=== PATIENT | female | born 1990 | race African-American/Black ===

== ENCOUNTER 2019-03-17 02:16 | Observation (INO) | payer OTHER ==
[~2019-03-17] VITALS: Ht 167.6 cm; Wt 77.1 kg
[2019-03-17] MEDS ORDERED: LACTATED RINGERS 1,000 ML IV SCH (03:15)
[2019-03-17] MEDS ORDERED: ONDANSETRON HCL 4MG/2ML INJ IV NR (03:15)
[2019-03-17 03:47] LABS: CHLORIDE 108 mEq/L (98-107)
[2019-03-17] MEDS ORDERED: PREN1TAB23 PO (04:06)
== END 2019-03-17 04:30 | disposition home or self-care (01) ==
LOC: 8 EST LDRP 02:16
PROVIDERS: ADMIT Obstetrics & Gynecology; ATTEND Obstetrics & Gynecology
DX: O21.2 Late vomiting of pregnancy (principal); O26.893 Other specified pregnancy related conditions, third trimester; R19.7 Diarrhea, unspecified; Z3A.28 28 weeks gestation of pregnancy
CPT/HCPCS: 36415; 80053; 96361; 96374; 99281; G0378; J2405; 96360; 96365

== ENCOUNTER 2021-02-06 16:05 | Emergency (ER) | payer OTHER ==
[~2021-02-06] VITALS: Ht 167.6 cm; Wt 79.0 kg
[~2021-02-06 16:05] MED LIST: PREN1TAB23 PO
[2021-02-06] MEDS ORDERED: HYDROCODONE/ACETAMINOPHEN 10/325MG TABLET PO ONE (16:45)
[2021-02-06] MEDS ORDERED: TETANUS, DIPHTHERIA, PERTUSSIS VAC/PF 0.5ML (>7YR OLD) IM ONE (16:45)
[2021-02-06] MEDS ORDERED: METHOCARBAMOL 500MG TABLET PO ONE (18:00)
[2021-02-06] MEDS ORDERED: METH-375 MT (18:47)
[2021-02-06 19:20] VITALS: BP 128/88
== END 2021-02-06 19:21 | disposition home or self-care (01) ==
LOC: ER 16:05
DX: S30.811A Abrasion of abdominal wall, initial encounter (principal); M25.572 Pain in left ankle and joints of left foot; M25.562 Pain in left knee; Z79.899 Other long term (current) drug therapy; V49.88XA Car occupant (driver) (passenger) injured in other specified transport accidents, initial encounter; Y93.89 Activity, other specified; Y92.89 Other specified places as the place of occurrence of the external cause; Y99.8 Other external cause status
CPT/HCPCS: 73560; 73610; 73630; 81025; 99284